=== PATIENT | female | born 1975 | race Caucasian/White ===

== ENCOUNTER 2017-02-02 18:26 | Emergency (ER) | payer OTHER | END 2017-02-02 18:28 | disposition left against medical advice (07) | LOC: ER 18:26 | DX: Z53.21 Procedure and treatment not carried out due to patient leaving prior to being seen by health care provider (principal) | CPT/HCPCS: 99211 ==

== ENCOUNTER 2017-02-06 21:55 | Emergency (ER) | payer OTHER | END 2017-02-06 23:08 | disposition home or self-care (01) | LOC: ER 21:55 | DX: L03.116 Cellulitis of left lower limb (principal); L81.8 Other specified disorders of pigmentation; Z88.0 Allergy status to penicillin; Z79.899 Other long term (current) drug therapy | CPT/HCPCS: 99070; 99282 ==